=== PATIENT | female | born 1970 | race Asian ===

== ENCOUNTER 2019-07-27 06:26 | Emergency (ER) | payer BC ==
[~2019-07-27] VITALS: Ht 165.1 cm; Wt 52.6 kg
[2019-07-27 06:35] VITALS: BP 134/89
--- NOTE | 2019-07-27 06:35 | NUR ---
ED Nurse Note: Patient walked in to ED c/o epigastric pain radiating to her lower back, nausea and vomiting since yesterday. Pt stated shes having indigestion. 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 Afebrile. Not in any ditress.
--- NOTE | 2019-07-27 06:40 | NUR ---
ED Nurse Note: IV line established. Blood specimen collected and sent to lab.
[2019-07-27] MEDS ORDERED: Mylanta II UD 30ml ORAL ONE (06:45)
[2019-07-27] MEDS ORDERED: Lidocaine 2% Visc 15ml soln ORAL ONE (06:45)
[2019-07-27] MEDS ORDERED: Dicyclomine HCl 10mg/5ml oral soln ORAL ONE (06:45)
--- NOTE | 2019-07-27 06:49 | Emergency Room Report ---
History of Present Illness General Chief Complaint: Pain Source: Patient Present Illness HPI Disclaimer: Please note that this report is being documented using [employer] technology. This can lead to erroneous entry secondary to incorrect interpretation by the dictating instrument. HPI: 48-year-old female presents for abdominal pain and vomiting. Symptoms began 2 days ago. The patient states she had some takeout food after which she developed what she believes is indigestion. She felt upper abdominal cramping, nausea and several episodes of vomiting. Has not been eating or drinking much over the past 2 days. Symptoms returned last night. Denies diarrhea. She reports some pain radiating up into the chest and some shortness of breath without cough or fever. Pain is also radiating through to the back. Took Tums prior to arrival with some improvement in her symptoms. No prior history of pancreatitis, cholecystitis, nephrolithiasis. Denies urinary tract symptoms. PMH: GERD PSH: Hysterectomy Allergies: Denies Social Hx: Denies Allergies: Coded Allergies: No Known Allergies (Unverified , 07/27/19) COVID-19 Screening Contact w/high risk pt: No Recent Travel to affected area: No Experienced COVID-19 symptoms?: No Patient History Now: No Nursing Documentation-PMH Past Medical History: No Stated History Review of Systems All Other Systems: negative except mentioned in HPI Physical Exam Vital Signs Date Time Temp Pulse Resp B/P (MAP) Pulse Ox O2 Delivery O2 Flow Rate FiO2 07/27/19 06:30 97.5 80 18 134/89 (104) 95 Room Air General: Awake and alert, no acute distress HEENT: NC/AT. EOMI. Cardiovascular: RRR. S1 and S2 normal. No murmur appreciated Resp: Normal work of breathing. No cough, wheezing or crackles appreciated Abdomen: Abdomen is soft, nondistended. Nurse in the epigastrium. No rebound. Negative Kothari's. Skin: Intact. No abrasions, laceration or rash over the exposed skin MSK: Normal tone and bulk. Moving all extremities. No obvious deformity. Neuro: Awake and alert. Mentating appropriately. Medical Decision Making Diagnostic Impression: Primary Impression: Abdominal pain Additional Impression: Gastritis ER Course 48-year-old female presents for evaluation of abdominal pain and vomiting. Differential includes but is not limited to GERD, gastritis, gastroenteritis, pancreatitis, cholecystitis, nephrolithiasis, pyelonephritis, UTI, bowel obstruction, constipation, food poisoning, atypical chest pain, ACS, pneumonia, viral syndrome to name a few. She arrives with stable vital signs. EKG obtained on arrival is nonischemic. Will provide IV fluids, antiemetics, antacids, broad labs and x-rays of the chest and abdomen. Laboratory Tests Test 07/27/19 06:50 07/27/19 07:40 White Blood Count 9.9 K/UL (4.8-10.8) Red Blood Count 4.79 M/UL (4.20-5.40) Hemoglobin 14.2 G/DL (12.0-16.0) Hematocrit 39.7 % (37.0-47.0) Mean Corpuscular Volume 83 FL (80-99) Mean Corpuscular Hemoglobin 29.6 PG (27.0-31.0) Mean Corpuscular Hemoglobin Concent 35.7 G/DL (32.0-36.0) Red Cell Distribution Width 10.6 % (11.6-14.8) L Platelet Count 197 K/UL (150-450) Mean Platelet Volume 8.1 FL (6.5-10.1) Neutrophils (%) (Auto) 82.8 % (45.0-75.0) H Lymphocytes (%) (Auto) 9.9 % (20.0-45.0) L Monocytes (%) (Auto) 6.7 % (1.0-10.0) Eosinophils (%) (Auto) 0.3 % (0.0-3.0) Basophils (%) (Auto) 0.4 % (0.0-2.0) Sodium Level 137 MMOL/L (136-145) Potassium Level 3.8 MMOL/L (3.5-5.1) Chloride Level 103 MMOL/L (98-107) Carbon Dioxide Level 25 MMOL/L (21-32) Anion Gap 9 mmol/L (5-15) Blood Urea Nitrogen 14 mg/dL (7-18) Creatinine 1.2 MG/DL (0.55-1.30) Estimated Glomerular Filtration Rate 48.2 mL/min (>60) Glucose Level 133 MG/DL (74-106) H Calcium Level 10.7 MG/DL (8.5-10.1) H Total Bilirubin 0.6 MG/DL (0.2-1.0) Aspartate Amino Transferase (AST) 18 U/L (15-37) Alanine Aminotransferase (ALT) 30 U/L (12-78) Alkaline Phosphatase 93 U/L (46-116) Troponin I 0.000 ng/mL (0.000-0.056) Total Protein 8.0 G/DL (6.4-8.2) Albumin 3.7 G/DL (3.4-5.0) Globulin 4.3 g/dL Albumin/Globulin Ratio 0.9 (1.0-2.7) L Lipase 103 U/L (73-393) Urine Color Pale yellow Urine Appearance Slightly cloudy Urine pH 7 (4.5-8.0) Urine Specific [place] 1.010 (1.005-1.035) Urine Protein Negative (NEGATIVE) Urine Glucose (UA) Negative (NEGATIVE) Urine Ketones Negative (NEGATIVE) Urine Blood 2+ (NEGATIVE) H Urine Nitrite Negative (NEGATIVE) Urine Bilirubin Negative (NEGATIVE) Urine Urobilinogen Normal MG/DL (0.0-1.0) Urine Leukocyte Esterase Negative (NEGATIVE) Urine RBC 2-4 /HPF (0 - 2) H Urine WBC 0-2 /HPF (0 - 2) Urine Squamous Epithelial Cells Occasional /LPF Urine Amorphous Sediment Moderate /LPF (NONE) H Urine Bacteria Occasional /HPF (NONE) EKG Diagnostic Results EKG Time: 06:42 Rate: normal Rhythm: NSR ST Segments: no acute changes Other Impression Sinus rhythm with prolonged NC interval at 2 2 4 ms consistent with first- degree AV block. No ST segment changes, normal axis. Rhythm Strip Diag. Results Rhythm Strip Time: 06:42 EP Interpretation: yes Rate: 80 Rhythm: NSR, no PVC's, no ectopy Chest X-Ray Diagnostic Results Chest X-Ray Diagnostic Results : Chest X-Ray Ordered: Yes # of Views/Limited/Complete: 1 View Indication: Chest Pain EP Interpretation: Yes Interpretation: no consolidation, no effusion, no pneumothorax Impression: No acute disease Electronically Signed by: Electronically signed by Dr. Avinash Crawford Other X-Ray Diagnostic Results Other X-Ray Diagnostic Results : X-Ray ordered: Abdomen # of Views/Limited Vs Complete: 1 View Indication: Pain EP Interpretation: Yes Interpretation: nonspecific bowel gas, no sbo Impression: No acute disease Electronically Signed by: Electronically signed by Dr. Avinash Crawford Reevaluation Time: 08:14 Last Vital Signs Date Time Temp Pulse Resp B/P (MAP) Pulse Ox O2 Delivery O2 Flow Rate FiO2 07/27/19 06:35 97.5 88 18 134/89 95 Room Air Reevaluation Impression Labs have returned within normal limits. No white count, no signs of urinary tract infection, troponin negative. X-rays of the chest and abdomen unremarkable. Vital signs have been within normal limits since patient arrival. Symptoms improved after receiving antiemetics, IV fluids and pain medications. Likely she is experiencing a gastritis from the takeout food she had a few days ago. Will prescribe antacids and follow-up with PMD. She is also requesting medication for constipation recently. Will prescribe MiraLAX. Discussed reasons to return to the emergency department. She understands and agrees with this treatment plan. Disposition: HOME, SELF-CARE Condition: Stable Scripts Polyethylene Glycol 3350* (MIRALAX*) 17 Gm Powd.pack 17 GM ORAL DAILY for 7 Days, #14 PACKET Prov: Avinash Crawford MD 07/27/19 Ondansetron Odt* (ZOFRAN ODT*) 4 Mg Tab.rapdis 4 MG BC EVERY 6 HOURS PRN for Nausea & Vomiting, #20 TAB 0 Refills Prov: Avinash Crawford MD 07/27/19 Famotidine* (Pepcid 20mg tablet*) 20 Mg Tablet 20 MG ORAL DAILY, #30 TAB 0 Refills Prov: Avinash Crawford MD 07/27/19 Mag Hydrox/Al Hydrox/Simeth (Maalox Advanced Suspension) 355 Ml Oral.susp 355 ML PO BID, #355 ML Prov: Avinash Crawford MD 07/27/19 Avinash Crawford MD Jul 27, 2019 06:49
--- NOTE | 2019-07-27 07:11 | NUR ---
HAND-OFF: Report given to Justina TINEO. Endoresed plan of care.
[2019-07-27 07:16] LABS: BASOPHILS % (AUTO) 0.4 % (0.0-2.0); EOSINOPHILS % (AUTO) 0.3 % (0.0-3.0); HEMATOCRIT 39.7 % (37.0-47.0); HEMOGLOBIN 14.2 G/DL (12.0-16.0); LYMPHOCYTES % (AUTO) 9.9 % (20.0-45.0); MEAN CORPUSCULAR VOLUME 83 FL (80-99); MONOCYTES % (AUTO) 6.7 % (1.0-10.0); NEUTROPHILS % (AUTO) 82.8 % (45.0-75.0); PLATELET COUNT 197 K/UL (150-450); RED BLOOD COUNT 4.79 M/UL (4.20-5.40); RED CELL DISTRIBUTION WIDTH 10.6 % (11.6-14.8); WHITE BLOOD COUNT 9.9 K/UL (4.8-10.8)
[2019-07-27 07:19] LABS: ANION GAP 9 mmol/L (5-15); BLOOD UREA NITROGEN 14 mg/dL (7-18); CALCIUM 10.7 MG/DL (8.5-10.1); CARBON DIOXIDE 25 MMOL/L (21-32); CHLORIDE 103 MMOL/L (98-107); CREATININE 1.2 MG/DL (0.55-1.30); POTASSIUM 3.8 MMOL/L (3.5-5.1); SODIUM 137 MMOL/L (136-145)
--- NOTE | 2019-07-27 07:22 | NUR ---
ED Nurse Note: pcxr being done
[2019-07-27 07:23] LABS: ALANINE AMINOTRANSFERASE 30 U/L (12-78); ALBUMIN 3.7 G/DL (3.4-5.0); ALBUMIN/GLOBULIN RATIO 0.9 (1.0-2.7); ALKALINE PHOSPHATASE 93 U/L (46-116); ASPARTATE AMINO TRANSFERASE 18 U/L (15-37); BILIRUBIN,TOTAL 0.6 MG/DL (0.2-1.0)
--- NOTE | 2019-07-27 07:45 | NUR ---
ED Nurse Note: pt amb steady to brp urine sent. cloudy yellow urine noted. pt relates continued nausea
[2019-07-27 08:01] LABS: APPEARANCE,URINE SLIGHTLY CLOUDY; BILIRUBIN, URINE NEGATIVE (NEGATIVE); COLOR,URINE PALE YELLOW; GLUCOSE, URINE (UA) NEGATIVE (NEGATIVE); KETONES,URINE NEGATIVE (NEGATIVE); LEUKOCYTE ESTERASE ,URINE NEGATIVE (NEGATIVE); NITRITE,URINE NEGATIVE (NEGATIVE); PH,URINE 7 (4.5-8.0); PROTEIN,URINE NEGATIVE (NEGATIVE); UROBILINOGEN,URINE NORMAL MG/DL (0.0-1.0)
[2019-07-27] MEDS ORDERED: Morphine Sulfate 4mg/ml Inj (IV USE ONLY) IVP ONE (08:15)
--- NOTE | 2019-07-27 08:16 | NUR ---
ED Nurse Note: pt remedicated for continued pain
[2019-07-27] MEDS ORDERED: MAALOX ADVANCE770 ML PO (08:17)
[2019-07-27] MEDS ORDERED: FAMOTIDINE20 MG ORAL (08:17)
[2019-07-27] MEDS ORDERED: ONDANSETRON ODT4 MG BC (08:31)
[2019-07-27] MEDS ORDERED: MIRALAX17 G2 ORAL (08:31)
--- NOTE | 2019-07-27 08:35 | Diagnostic Imaging Report ---
Indication: Abdominal pain Technique: Supine view of the abdomen Comparison: none Findings: Unremarkable bowel gas pattern. No masses or unusual calcifications. Impression: Negative
--- NOTE | 2019-07-27 08:36 | Diagnostic Imaging Report ---
Indication: Shortness of breath Technique: One view of the chest Comparison: none Findings: Lungs and pleural spaces are clear. Heart size is normal. Impression: No acute process
--- NOTE | 2019-07-27 08:44 | NUR ---
ED Nurse Note: Pt cleared by health care Provider for discharge. DC instructions/prescription was given and explained to pt and verbalized understanding of teachings. All medical devices such as ID band removed. Pt is AAO x4, ambulatory and left with all personal belongings. work note given also
[2019-07-27 08:45] VITALS: BP 143/86
== END 2019-07-27 08:47 | disposition home or self-care (01) ==
LOC: EMR 07:00
DX: K29.70 Gastritis, unspecified, without bleeding (principal); R10.9 Unspecified abdominal pain; K21.9 Gastro-esophageal reflux disease without esophagitis; Z90.710 Acquired absence of both cervix and uterus; R06.02 Shortness of breath
CPT/HCPCS: 36415; 71045; 74018; 80053; 81003; 83690; 84484; 85025; 93005; 96361; 96374; 96375; 99284; J2270; J2405; J7030; S0028